=== PATIENT | male | born 1960 | race Caucasian/White ===

== ENCOUNTER 2020-01-07 13:14 | Emergency (ER) | payer MEDICARE, OTHER ==
[~2020-01-07] VITALS: Ht 180.3 cm; Wt 81.6 kg
--- NOTE | 2020-01-07 13:15 | NUR ---
CALLED TO TRIAGE,NO ANSWER
[2020-01-07 13:27] VITALS: BP 142/87
--- NOTE | 2020-01-07 13:43 | NUR ---
[employer] TRA[employer] TRAIL[employer] AT BEDSIDE FOR XRAY.
--- NOTE | 2020-01-07 15:17 | NUR ---
Patient discharged to home in stable condition. Written and verbal after care instructions given. Patient verbalizes understanding of instruction.
== END 2020-01-07 15:20 | disposition home or self-care (01) ==
LOC: ER 13:20
DX: R07.89 Other chest pain (principal); Z98.890 Other specified postprocedural states
CPT/HCPCS: 71100-TC

== ENCOUNTER 2020-07-01 10:56 | Emergency (ER) | payer OTHER ==
[~2020-07-01] VITALS: Ht 180.3 cm; Wt 72.6 kg
[2020-07-01 11:08] VITALS: BP 103/67
--- NOTE | 2020-07-01 11:16 | NUR ---
REFUSED ACI AND SIGN FOR ACI
== END 2020-07-01 11:16 | disposition home or self-care (01) ==
LOC: ER 10:59
DX: M54.5 Low back pain (principal); G89.29 Other chronic pain; Z98.890 Other specified postprocedural states; Z60.2 Problems related to living alone

== ENCOUNTER 2020-07-15 12:01 | Emergency (ER) | payer OTHER ==
[~2020-07-15] VITALS: Ht 180.3 cm; Wt 74.8 kg
[2020-07-15 12:08] VITALS: BP 141/89
--- NOTE | 2020-07-15 12:16 | NUR ---
COLOSTOMY BAG PROVIDED
== END 2020-07-15 12:52 | disposition home or self-care (01) ==
LOC: ER 12:04
DX: C18.9 Malignant neoplasm of colon, unspecified (principal); Z43.3 Encounter for attention to colostomy; Z98.890 Other specified postprocedural states; Z60.2 Problems related to living alone